=== PATIENT | male | born 2000 | race Native Hawaiian/Other Pacific Islander ===

== ENCOUNTER 2021-01-26 15:16 | Emergency (ER) | payer BC ==
[~2021-01-26] VITALS: Ht 170.2 cm; Wt 59.0 kg
[2021-01-26] MEDS ORDERED: ONDANSETRON ODT4 MG PO (19:03)
== END 2021-01-26 19:20 | disposition home or self-care (01) ==
LOC: ED 15:16
DX: R11.2 Nausea with vomiting, unspecified (principal); D72.829 Elevated white blood cell count, unspecified
CPT/HCPCS: 80053; 83690; 83735; 85025; 96374; 96375; 99284-25; J1200; J2405; J2765; J7030